=== PATIENT | female | born 1960 | race Caucasian/White ===

== ENCOUNTER → 2017-10-07 09:00 | Outpatient (CLI) | payer MEDICAID, SELFPAY ==
--- NOTE | 2017-10-07 | ASPOS_PTH ---
PATIENT: MICHELLE TOSCANO LOC: . U#:[id number] AGE/SX: 64/F ROOM: RE10/07/[address]: Dr. Jarad Stock MD : 1960 BED: DIS: SPEC #: [id number] RECD: 10/07/17 12:40 STATUS: KRISTEN HUBER #: [id number] RHINA: 10/07/17 00:[address]: Jarad Stock DEPT: CYTOLOGY RECD BY: Oliver Martinez ENTERED: 10/07/17 12:40 SP TYPE: ASP HERE OTHR DR: No Primary Care Phys Tissues: Neck, NOS Procedures: Pap Stain (control) Special Stain Group II Surgery Specimen Level IV Diff Quik Stain (control) Cell Block Cytology Other Fine Needle Asp on Site HEADER OPERATION: FNA left neck mass PRE-OP DIAGNOSIS: Left neck mass TISSUE SUBMITTED: Smear and fluid for cell block and cytology DIAGNOSIS CYTOLOGY Fine needle aspiration, left neck mass (smears and cell block): Squamous cell carcinoma. AM:faizan 10/08/17 COMMENT The specimen is evaluated at the time of FNA by Dr. Riley. Immediate Evaluation = Atypical epithelioid lesion. Immunohistochemistry ([id number]) supports the above diagnosis. The lesion in the neck may represent a metastatic focus of squamous cell carcinoma and/or involved branchial cleft cyst. Clinical correlation is necessary. Case has been reviewed in consultation with Dr. Funes who concurs with the above diagnosis. IDC:SJ CYTOLOGY STUDY Slides are reviewed. CYTOLOGY GROSS Received is 0.2 ml of reddish fluid labeled with the patient's name, and designated FNA left neck mass. 3 imprints and 2 paps are made from the submitted fluid and the rest is added to CytoLyt for cell block preparation. Submitted for cytology study. / 10/07/17 TC:0 CPT: 39514, 47142, 12032, 59843
--- NOTE | 2017-10-07 | IMM_PTH ---
PATIENT: MICHELLE TOSCANO LOC: . U#:[id number] AGE/SX: 64/F ROOM: RE10/07/[address]: Dr. Jarad Stock MD : 1960 BED: DIS: SPEC #: [id number] RECD: 10/08/17 10:53 STATUS: KRISTEN REQ #: [id number] RHINA: 10/07/17 00:[address]: Jarad Stock DEPT: IMMUNOHISTOCHEMISTRY RECD BY: Anna Meneses ENTERED: 10/08/17 10:55 SP TYPE: IMMUNO OTHR DR: No Primary Care Phys Tissues: Skin of neck, NOS Procedures: NAPSIN A (add) CK14 (add) CK20 (add) CK5-6 (add) CK7 (add) P16 (add) TTF1 (add) Pankeratin (initial) P40 (add) PHYSICIAN & INSTITUTION [place] [id number] SPECIMEN INFORMATION: Tissue Source: Left neck mass Clinical Info: Left neck mass Specimen Number: [id number] (cell block) CPT code: 21306, 10128 x8 METHODOLOGY: Deparaffinized sections of prefer/formalin-fixed tissue or PAP/DQ stained slides are incubated with monoclonal/polyclonal antibodies/oligonucleotide probes. Localization is made via biotin free immunoperoxidase method. Appropriate controls are performed and reacted as expected. Results on target cell population are indicated in the following table: RESULTS: ANTIBODY / CLONE RESULT AE1-3 (AE1/AE3/PCK26) positive CK5-6 (D5 & 1684) positive, strong CK14 (LL002) positive P40 (BC28) positive, strong P16 (E6H4) negative CK7 (OV-TL12/30) negative CK20 (KS20.8) negative TTF-1 (8G7G3/1) negative Napsin A (Rabbit Polyclonal) negative These tests were developed and their performance characteristics determined by [facility]. They may not have been cleared or approved by the U.S. Food and Drug Administration. The FDA has determined that such clearance or approval is not necessary. INTERPRETATION: Left neck mass, fine needle aspiration: Squamous cell carcinoma. AM:faizan 10/10/17
== END ==
PROVIDERS: Visit Provider Otolaryngology
DX: R22.1 Localized swelling, mass and lump, neck (principal)
CPT/HCPCS: 10021; 88161; 88305; 88313; 88341; 88342

== ENCOUNTER → 2017-10-21 09:40 | Outpatient (CLI) | payer MEDICAID, SELFPAY ==
--- NOTE | 2017-10-21 09:00 | PET_ITS ---
EXAMINATION: FDG PET CT INDICATIONS: A 57-year-old female with reported history of primary head and neck carcinoma presenting for initial staging examination. COMPARISON EXAMINATION: None available. INDEX LESION SIZE SUV INTERPRETATION Left pharyngeal mucosal space, tonsillar pillar 28.2 mm (frame 264) 7.6 Fulfills quantitative criteria for viable neoplasm Left lateral neck level II A (n = 1) 27.3 mm x 33.1 mm (frame 257) 12.2 Fulfills quantitative criteria for viable neoplasm TECHNIQUE: Following the intravenous administration of 14.3 mCi of F-18 deoxyglucose via the right antecubital fossa, multiplanar image acquisitions of the head, neck, chest, abdomen and pelvis to level of mid thigh, obtained at one hour post radiopharmaceutical administration contemporaneously interpreted with the current CT of the head, neck, chest, abdomen and pelvis to level of mid thigh, dated 10/21/17 via coregistration reveal: SERUM GLUCOSE LEVEL: 95 mg/dl. HEIGHT: 62 inches. WEIGHT: 130 lbs. FINDINGS: 1. Increased glucose concentration is demonstrated in the left pharyngeal mucosal space contiguous to the tonsillar pillar generating a calculated maximum standard uptake value of 7.6. The maximal axial diameter of the corresponding metabolic, morphologic abnormality on review of CT of the neck dated 10/21/17 is approximately 28.2 mm (AP). 2. Asymmetric increased glucose concentration is demonstrated in the left lateral neck involving level II A. The calculated maximum standard uptake value is 12.2. The maximal axial diameter of the corresponding hypermetabolic soft tissue density-mass on review of CT of the neck dated 10/21/17 is 27.3 mm (transverse) x 33.1 mm (AP). 3. Normal physiologic distribution of the radiopharmaceutical is apparent in the hepatic (2.8) and splenic parenchyma, both renal units, bladder and visualized intestinal tract. There is symmetric glucose metabolism identified in the occipital, parietal, temporal and frontal lobes of the cerebral cortex, with normal visualization of the cerebellar hemispheres and basal ganglia. Diffuse intestinal tract activity is noted throughout all four quadrants of the abdominal-pelvic retroperitoneum, mesentery consistent with normal physiologic distribution of the radiopharmaceutical. Prominent glucose metabolism is defined in the fifth lumbar vertebra posteriorly on the left and right consistent with a component of degenerative arthritis. Pertinent CT findings are as follows. CHEST: Right-left axillary soft tissue densities are non-glucose avid. Bilateral breast prostheses are defined. There are no parenchymal densities-nodules noted in the right-left hemithorax demonstrating discernible increased glucose metabolism. A small hiatal hernia appears evident. ABDOMEN AND PELVIS: Atherosclerotic calcification is defined in the abdominal aorta without evidence of dilatation, aneurysm formation. Pelvic arterial calcification is observed. Right-left inguinal soft tissue densities are ametabolic. Colonic diverticulosis is defined. Calcification is manifest in the left lower hemipelvis. SKELETAL: Degenerative changes defined in the cervical, thoracic and lumbar spine demonstrate no evidence for glucose hypermetabolism. PET/PET/CT Tumor Base -Thigh Init IMPRESSION: 1. ABNORMAL EXAMINATION INDICATIVE OF MALIGNANT VIABLE NEOPLASM. 2. Increased glucose concentration defined in the left pharyngeal mucosal space, tonsillar pillar and left lateral neck fulfills quantitative criteria for viable neoplasm. 3. No other quantitatively significant hypermetabolic abnormalities are noted. There is no definitive scintigraphic evidence of distant metastatic disease. Electronic Signature Oliver Rios D.O. Electronically Signed: Oliver Rios DO at 23:26 EDT Tel , Service support ,
== END ==
PROVIDERS: Visit Provider Otolaryngology Otolaryngology/Facial Plastic Surgery
DX: C80.1 Malignant (primary) neoplasm, unspecified (principal); R22.1 Localized swelling, mass and lump, neck
CPT/HCPCS: 78815; A9552

== ENCOUNTER → 2017-10-22 10:40 | Outpatient (CLI) | payer MEDICAID, SELFPAY ==
--- NOTE | 2017-10-22 11:10 | EKG12_ITS ---
Test Reason : PREOP Blood Pressure : / mmHG Vent. Rate : 088 BPM Atrial Rate : 088 BPM P-R Int : 150 ms QRS Dur : 082 ms QT Int : 358 ms P-R-T Axes : 030 077 036 degrees QTc Int : 433 ms Normal sinus rhythm Low voltage QRS Borderline ECG Confirmed by JOSE ALVAREZ, GIL ([id number]), movie editor JEVON KOWALSKI ([id number]) on 10/25/2017 9:39:34 AM Referred By: Jarad Stock Confirmed By:GIL GARCIA MD
[2017-10-22 11:28] LABS: Hematocrit 43.8 % (37-47); Hemoglobin 14.7 g/dl (12.0-15.0); Mean Corp Hgb Conc 33.6 g/gl (32-36); Mean Corpuscular Hgb 29.4 pg (27.0-32.0); Mean Corpuscular Volume 87.6 fL (81-99); Mean Platelet Vol. 8.9 fl (6.2-12.0); Platelet Count 245 K/mm3 (150-450); RBC Distribution Width CV 12.6 % (11.6-14.6); RBC Distribution Width SD 40.2 fl (35.1-43.9)
[2017-10-22 11:29] LABS: Scan Indicated on CBC? Y/N NO
[2017-10-22 11:45] LABS: Anion Gap 7 (5-15); BUN 12 mg/dL (7-18); BUN/Creat Ratio 15.2 RATIO (10-20); Calcium,Total 9.2 mg/dL (8.5-10.1); Chloride 104 mmol/L (98-107); Creatinine, Serum 0.79 mg/dL (0.55-1.02); EST Glomerular Filtration Rate 80 mL/min (>60); Est Glom Filt Rate - Afr Amer 97 mL/min (>60); Glucose 103 mg/dL (74-106); Sodium Level 139 mmol/L (136-145)
[2017-10-22 11:46] LABS: Erythrocyte Sedimentation Rate 24 mm/hr (0-30)
[2017-10-22 12:00] LABS: CRP < 2.90 mg/L (0.0-3.0); Free T3 4.1 pg/mL (2.18-3.98); T4 Free Direct 0.97 ng/dL (0.76-1.46); Thyroid Stim Hormone (TSH) 1.82 uIU/mL (0.358-3.74)
[2017-10-23 08:30] LABS: Vitamin D,25 Hydroxy 51.2 ng/mL (29.95-100.01)
[2017-10-24 10:06] LABS: Anti-Thyroglobulin AB < 1.0 IU/mL (0.0-0.9); Thyroglobulin, Serum Qt. 3.7 ng/mL (1.5-38.5); Thyroid Peroxidase AB 20 IU/mL (0-34)
[2017-10-24 12:08] LABS: CHOLESTEROL TOTAL 329 mg/dL (100-199); HDL-C 57 mg/dL (>39); HDL-P TOTAL 33.9 umol/L (>=30.5); SMALL LDL-P 1012 nmol/L (<=527); TRIGLYCERIDES 211 mg/dL (0-149)
[2017-10-24 14:05] LABS: LDL SIZE 20.9 nm (>20.5); LDL-C 230 mg/dL (0-99); LDL-P 2866 nmol/L (<1000); LP-IR SCORE ** 77 (<=45)
== END ==
PROVIDERS: Visit Provider Otolaryngology
DX: Z01.812 Encounter for preprocedural laboratory examination (principal); Z79.899 Other long term (current) drug therapy; E55.9 Vitamin D deficiency, unspecified; E78.2 Mixed hyperlipidemia; E03.9 Hypothyroidism, unspecified; R59.1 Generalized enlarged lymph nodes
CPT/HCPCS: 36415; 80048; 80061; 82306; 83704; 84432; 84439; 84443; 84481; 85027; 85652; 86140; 86376; 86800; 93005

== ENCOUNTER → 2017-10-28 15:54 | Outpatient (CLI) | payer MEDICAID, SELFPAY ==
--- NOTE | 2017-10-28 | IMM_PTH ---
PATIENT: MICHELLE TOSCANO LOC: [facility] U#:[id number] AGE/SX: 64/F ROOM: RE10/28/[address]: Dr. Jarad Stock MD : 1960 BED: DIS: SPEC #: [id number] RECD: 10/30/17 12:03 STATUS: KRISTEN HUBER #: [id number] RHINA: 10/28/17 00:[address]: Jarad Stock DEPT: IMMUNOHISTOCHEMISTRY RECD BY: Anna Meneses ENTERED: 10/30/17 12:04 SP TYPE: IMMUNO OTHR DR: No Primary Care Phys Tissues: Tonsil, NOS Procedures: CK14 (add) CK5-6 (add) KI-67 (add) P16 (add) Vimentin (add) Pankeratin (initial) P40 (add) S-100 (add) PHYSICIAN & INSTITUTION [place] [id number] SPECIMEN INFORMATION: Tissue Source: Left tonsil Clinical Info: Neoplasm of left tonsil Specimen Number: [id number] #2 CPT code: 62786, 91480 x7 METHODOLOGY: Deparaffinized sections of prefer/formalin-fixed tissue or PAP/DQ stained slides are incubated with monoclonal/polyclonal antibodies/oligonucleotide probes. Localization is made via biotin free immunoperoxidase method. Appropriate controls are performed and reacted as expected. Results on target cell population are indicated in the following table: RESULTS: ANTIBODY / CLONE RESULT Block 2 AE1-3 (AE1/AE3/PCK26) positive P40 (BC28) positive CK5-6 (D5 & 1684) positive CK14 (LL002) positive Ki-67 (30-9) positive, moderate to high S-100 (4C4.9) negative Vimentin (V9) negative P16 (E6H4) positive, block-like These tests were developed and their performance characteristics determined by [facility]. They may not have been cleared or approved by the U.S. Food and Drug Administration. The FDA has determined that such clearance or approval is not necessary. INTERPRETATION: Left tonsil, tonsillectomy: Invasive squamous cell carcinoma. AM:faizan 10/31/17
--- NOTE | 2017-10-28 09:13 | TONS_PTH ---
PATIENT: MICHELLE TOSCANO LOC: [facility] U#:[id number] AGE/SX: 64/F ROOM: RE10/28/[address]: Dr. Jarad Stock MD : 1960 BED: DIS: SPEC #: [id number] RECD: 10/28/17 15:23 STATUS: KRISTEN HUBER #: [id number] RHINA: 10/28/17 09:[address]: Jarad Stock DEPT: SURGICAL PATHOLOGY RECD BY: Luís Izquierdo ENTERED: 10/29/17 12:37 SP TYPE: TONSILS OTHR DR: No Primary Care Phys [facility] Tissues: Tonsil, NOS Procedures: Surgery Specimen Level III HEADER OPERATION: Tonsillectomy PRE-OP DIAGNOSIS: Neoplasm of left tonsil TISSUE SUBMITTED: Left tonsil MICROSCOPIC DIAGNOSIS Left tonsil, tonsillectomy: Invasive squamous cell carcinoma. See Comment AM:faizan 10/30/17 COMMENT Cancer Summary Site ? left tonsil Tumor size ? 2.1 x 2.0 x 0.5 cms Type ? Invasive moderately to poorly differentiated squamous cell carcinoma. Margins ? tumor focally extends to deep margins of excision. Skeletal muscle involvement - present, focal superficial skeletal muscle fibers Perineural invasion ? not identified Vascular invasion ? not identified Maximal depth of invasion ? 5.2 millimeters Lymph nodes ? not present in specimen. P16 status ? strong block-like staining Ancillary studies - Immunohistochemistry ([id number]) supports the above diagnosis. Clinical history ? neoplasm of left tonsil Case has been reviewed in consultation with Dr. Funes who concurs with the above diagnosis. IDC:SJ MICROSCOPIC DESCRIPTION Slides are reviewed. GROSS DESCRIPTION Received in fixative is one container labeled with the patient's name and designated tonsil. The specimen consists of an irregular fragment of lobulated pink-maldonado soft tissue measuring 3.2 x 2.5 x 1.2 cm. One surface of the tissue is irregular and somewhat granular in appearance. The opposite surface is smooth and glistening. Serial sections reveal homogenous maldonado cut surfaces. The specimen is totally submitted in two cassettes. / AM:faizan 10/29/17 TC:0 CPT: 48339
== END ==
PROVIDERS: Visit Provider Otolaryngology
DX: C09.9 Malignant neoplasm of tonsil, unspecified (principal)
CPT/HCPCS: 88304; 88341; 88342